=== PATIENT | male | born 1970 | race Caucasian/White ===

== ENCOUNTER 2023-03-12 22:51 | Emergency (ER) | payer SELFPAY ==
[2023-03-12] VITALS (58 sets, daily range): BP systolic 107–143; BP diastolic 61–83; PULSE 71–77; RESP 12–24; TEMP 36.8; O2SAT 91–99
--- NOTE | 2023-03-12 22:45 | RT.EKG_ITS ---
APPROVED REPORT Exam: Resting ECG Reason for Exam: chest pain Patient Location: E HR:75 bpm ECG Measurements Heart Rate 75 AXIS MD 127 P 22 QRSd 86 QRS -14 QT 355 T -7 QTc 397 Conclusion Sinus rhythm...normal P axis, V-rate 60- 99 Inferior infarct, age indeterminate...Q>35mS, T neg, II III aVF Narrow complex normal sinus rhythm at a rate of 75. Left axis deviation no signs of LVH based on vol tage criteria. Intervals within normal limits. T wave inversion in lead III. No acute ST segment a bnormalities. Prominent T wave in V3 compared to voltage of QRS complex. No acute injury pattern.
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
--- NOTE | 2023-03-12 23:15 | DI.CT_ITS ---
Exam(s) CT CHEST/ABD/PEL W CT THORACIC LUMBAR SPINE REC EXAM: CT CHEST/ABD/PEL W and CT thoracic and lumbar spine recons CLINICAL HISTORY: Trauma back pain chest pain TECHNIQUE: Imaging Protocol: Axial computed tomography images with coronal and sagittal reformatted images were created and reviewed CONTRAST MATERIAL: Intravenous: Omnipaque 350 contrast volume:100 mL Oral: No COMPARISON: There are no priors for comparison. FINDINGS: CHEST: Tracheobronchial tree: Patent where visualized. Pulmonary parenchyma: Moderate emphysematous changes are seen in the lungs. Dependent atelectasis is present, right greater than left. No focal consolidating infiltrates. There are few pulmonary nodu les present. The largest is in the right lung base and measures 6 mm. Visualized thyroid gland: Unremarkable. Mediastinum and Juliet: There are mildly enlarged lymph nodes seen in the mediastinum and hilum. The l argest measures 1.3 x 1.7 cm. The esophagus is unremarkable. Pleura: No effusion or pneumothorax. Heart: The heart is not dilated. Moderate coronary artery calcification is present. No pericardial e ffusion. Pulmonary arteries: The pulmonary arteries are insufficiently opacified for evaluation of pulmonary e mboli. Aorta: Thoracic aorta non-dilated. Mild atherosclerosis. Lymph nodes: No significant supraclavicular or axillary adenopathy. Soft tissues: Mild bilateral gynecomastia. Bones:Within normal limits for the patient's age. There are few sclerotic foci seen in the ribs. Of note is the left 9th rib. CT thoracic spine recons: Mild degenerative changes are seen in the thoracic spine. No acute fractur es or subluxations are present. There is a mild left convex curvature of the upper thoracic spine. ABDOMEN: Liver: There is fatty infiltration of the liver. No measurable mass. Portal, Superior Mesenteric, and Splenic Veins: Unremarkable. Gallbladder and Biliary Tract: There is a question of tiny echogenic debris within the gallbladder wh ich may represent small stones. No biliary ductal dilatation. Pancreas: Normal density, no abnormal calcifications or inflammatory process. Spleen: Normal. Adrenals: No masses seen. Kidneys: Normal size, contour and axis. No radiodense stones or obstructive uropathy. No masses seen. Abdominal Aorta: Abdominal portion non-dilated. Mild atherosclerosis. Bowel: No obstruction or bowel wall thickening. Appendix is unremarkable. Peritoneal Cavity: No ascites, collection or mesenteric inflammatory response. No free air. Lymph Nodes: Mildly enlarged lymph nodes seen in the right lower quadrant up to 1.7 cm. Bones: Within normal limits for the patient's age. Soft Tissues: There is a small fat containing right inguinal hernia. Lumbar spine recons: No acute fracture or subluxation is seen. There is L5 spondylolysis without spo ndylolisthesis. Age-appropriate degenerative changes are seen in the lumbar spine. PELVIS: Bladder: Symmetric distention, no gross wall thickening. Reproductive Organs: Unremarkable as visualized. Lymph Nodes: Within normal limits. Bones: Within normal limits. IMPRESSION: 1. No acute chest, abdomen or pelvic organ injury. 2. No acute fracture or subluxation in the thoracic or lumbar spine. 3. A few scattered pulmonary nodules. The largest measures 6 mm. In low risk patients, follow-up ex amination in 12 months is recommended. In high risk patients, (those with history of smoking or othe r risk factors), initial follow-up examination in 6-12 months and again in 18-24 months is recommende d. (Herminia et al, 2017). 4. Few sclerotic foci seen in the ribs. Of note is the left 9th rib lesion. These may represent bon [place]. If there is a history of cancer, bone scan should be considered for further evaluation. Unexpected findings RADIATION DOSE DELIVERED: Total DLP DATA REPOSITORY: All CT scans at this facility are submitted to the National Radiology Data Registry (NRDR) Dose Index Registry (DIR) with the [employer] ([employer]). RADIATION OPTIMIZATION: All CT scans at this facility use at least one of these dose optimization te chniques: automated exposure control; mA and/or kV adjustment per patient size (includes targeted exa ms where dose is matched to clinical indication); or iterative reconstruction.
--- NOTE | 2023-03-12 23:19 | DI.CT_ITS ---
Exam(s) CT HEAD CERVICAL SPINE WO EXAM: CT HEAD CERVICAL SPINE WO CLINICAL HISTORY: History of fall Head strike. TECHNIQUE: Imaging Protocol: Axial computed tomography images with coronal and sagittal reformatted images were created and reviewed COMPARISON: No exams were available for comparison FINDINGS: CT Head: Ventricles and Extra axial spaces: Normal in size and morphology for the patient's age. Hemorrhage: None. Cerebral parenchyma: No evidence of an acute territorial infarct. Midline shift: None. Brainstem/Cerebellum: Normal. Note is made of an empty sella. Calvarium: Normal. Visualized Paranasal sinuses/Mastoids: There is opacification of a few ethmoid air cells bilaterally. The remaining visualized paranasal sinuses are clear. There is opacity of the mastoid air cells kylah aterally. Soft Tissues: Unremarkable. CT Cervical Spine: Bones: No acute fracture or subluxation. Degenerative changes are seen in the cervical spine. Soft Tissues: Unremarkable. Lung Apices: Clear. IMPRESSION: 1. No acute intracranial process. 2. No acute fracture or subluxation in the cervical spine. RADIATION DOSE DELIVERED: Total DLP DATA REPOSITORY: All CT scans at this facility are submitted to the National Radiology Data Registry (NRDR) Dose Index Registry (DIR) with the [employer] (ACR). RADIATION OPTIMIZATION: All CT scans at this facility use at least one of these dose optimization te chniques: automated exposure control; mA and/or kV adjustment per patient size (includes targeted exa ms where dose is matched to clinical indication); or iterative reconstruction.
[2023-03-12 23:29] LABS: Abs Immature Grans 0.02 10^3/uL (0.0-0.06); Absolute Basophil Count 0.12 10^3/uL (0.0-0.2); Absolute Eosinophil Count 0.35 10^3/uL (0.0-0.7); Absolute Lymphocyte Count 3.24 10^3/uL (1.2-3.4); Absolute Monocyte Count 0.58 10^3/uL (0.1-0.8); Absolute Neutrophil Count 3.63 10^3/uL (1.2-6.7); Basophils % 1.5; Eosinophils % 4.4; HCT 46.4 % (40.0-50.0); HGB 15.8 g/dL (13.5-17.5); Immature Grans % 0.3; Lymphocytes % 40.8; MCH 30.6 pg (27.0-33.0); MCHC 34.1 % (32.0-36.0); MCV 90 fL (80-95); MPV 10.2 fL (8.0-11.0); Monocytes % 7.3; Neutrophils % 45.7; Platelet Count 235 10^3/uL (130-400); RBC 5.17 10^6/uL (4.36-5.78); RDW 12.3 % (11.8-14.1); WBC 7.94 10^3/uL (4.4-10.8)
[2023-03-12 23:47] LABS: Anion Gap 7.9 mmol/L (3-11); BUN 22 mg/dL (7-18); CO2 29.1 mmol/L (21.0-32.0); CREATININE 0.9 mg/dL (0.70-1.30); Calcium 9.1 mg/dL (8.5-10.1); Chloride 103 mmol/L (98-107); Estimated GFR 104.05 (mL/min/1.73m2); Glucose 180 mg/dL (74-106); Lipase 40 U/L (16-77); Potassium 3.8 mmol/L (3.5-5.1); Sodium 140 mmol/L (136-145); Troponin I < 50 ng/L (<or=60)
[2023-03-13] VITALS (106 sets, daily range): BP systolic 82–138; BP diastolic 48–88; PULSE 55–72; RESP 14–24; O2SAT 91–100
[2023-03-13] MEDS: Normal Saline - Diluent 50 ML VIAL IJ (00:18)
[2023-03-13] MEDS: Omnipaque 350 MG/ML 100 ML BTL IJ (00:18)
[2023-03-13] MEDS: Acetaminophen 500 MG TAB 1000 MG PO (00:25)
[2023-03-13] MEDS: fentaNYL 100 MCG/2 ML VIAL 50 MCG IVP (00:25)
[2023-03-13] MEDS: Normal Saline 500 ML IV (00:25)
--- NOTE | 2023-03-13 00:41 | DI.VRAD_ITS ---
PROCEDURE INFORMATION: Exam: CT Chest With Contrast; Diagnostic Exam date and time: 03/13/2023 12:17 AM Age: 52 years old Clinical indication: Injury or trauma; Fall; Generalized; Blunt trauma (contusions or hematomas); Injury details: Trauma back pain chest pain TECHNIQUE: Imaging protocol: Diagnostic computed tomography of the chest with contrast. Radiation optimization: All CT scans at this facility use at least one of these dose optimization techniques: automated exposure control; mA and/or kV adjustment per patient size (includes targeted exams where dose is matched to clinical indication); or iterative reconstruction. Contrast material: OMNI 350; Contrast volume: 100 ml; Contrast route: INTRAVENOUS (IV); COMPARISON: CT HEAD CERVICAL SPINE WO 03/13/2023 12:11 AM FINDINGS: Lungs: Pulmonary emphysema. No acute pulmonary infiltrate. Pleural spaces: Unremarkable. No pneumothorax. No pleural effusion. Heart: Unremarkable. No cardiomegaly. No pericardial effusion. Lymph nodes: Unremarkable. No enlarged lymph nodes. Vasculature: Unremarkable. No aortic aneurysm. Bones/joints: Unremarkable. No acute fracture. Soft tissues: Unremarkable. IMPRESSION: No acute finding. PROCEDURE INFORMATION: Exam: CT Abdomen And Pelvis With Contrast Exam date and time: 03/13/2023 12:17 AM Age: 52 years old Clinical indication: Injury or trauma; Fall; Generalized; Blunt trauma (contusions or hematomas); Injury details: Trauma back pain chest pain TECHNIQUE: Imaging protocol: Computed tomography of the abdomen and pelvis with contrast. Radiation optimization: All CT scans at this facility use at least one of these dose optimization techniques: automated exposure control; mA and/or kV adjustment per patient size (includes targeted exams where dose is matched to clinical indication); or iterative reconstruction. Contrast material: OMNI 350; Contrast volume: 100 ml; Contrast route: INTRAVENOUS (IV); COMPARISON: No relevant prior studies available. FINDINGS: Liver: Hepatic steatosis. Gallbladder and bile ducts: Normal. No calcified stones. No ductal dilation. Pancreas: Normal. No ductal dilation. Spleen: Normal. No splenomegaly. Adrenal glands: Normal. No mass. Kidneys and ureters: Normal. No hydronephrosis. Stomach and bowel: Unremarkable. No obstruction. No mucosal thickening. Appendix: No evidence of appendicitis. Intraperitoneal space: Unremarkable. No free air. No significant fluid collection. Vasculature: Unremarkable. No abdominal aortic aneurysm. Lymph nodes: Unremarkable. No enlarged lymph nodes. Urinary bladder: Unremarkable as visualized. Reproductive: Unremarkable as visualized. Bones/joints: Unremarkable. No acute fracture. Soft tissues: Unremarkable. IMPRESSION: No acute finding. Dictated and Authenticated by: Noé Grubbs MD. Ordering:STAN Tineo MD
--- NOTE | 2023-03-13 00:47 | DI.VRAD_ITS ---
PROCEDURE INFORMATION: Exam: CT Head Without Contrast Exam date and time: 03/13/2023 12:11 AM Age: 52 years old Clinical indication: Injury or trauma; Fall; Concussion/head injury; Consciousness not specified; Additional info: Fall, head injury TECHNIQUE: Imaging protocol: Computed tomography of the head without contrast. Radiation optimization: All CT scans at this facility use at least one of these dose optimization techniques: automated exposure control; mA and/or kV adjustment per patient size (includes targeted exams where dose is matched to clinical indication); or iterative reconstruction. COMPARISON: No relevant prior studies available. FINDINGS: Brain: Empty sella is noted. No acute intracranial hemorrhage or infarct is identified. No mass effect. There is no midline shift. Cerebral ventricles: No ventriculomegaly. Paranasal sinuses: Mucoperiosteal thickening is seen involving the frontal sinuses. Mastoid air cells: There is soft tissue opacification of some of the mastoid air cells bilaterally, consistent with mastoiditis. Dental: The patient is missing multiple teeth. Bones/joints: Unremarkable. No acute fracture. Soft tissues: Unremarkable. IMPRESSION: 1. Chronic sinusitis. 2. No acute intracranial hemorrhage or infarct. 3. Bilateral mastoiditis. PROCEDURE INFORMATION: Exam: CT Cervical Spine Without Contrast Exam date and time: 03/13/2023 12:11 AM Age: 52 years old Clinical indication: Injury or trauma; Fall; Concussion/head injury; Consciousness not specified; Additional info: Fall, head injury TECHNIQUE: Imaging protocol: Computed tomography of the cervical spine without contrast. Radiation optimization: All CT scans at this facility use at least one of these dose optimization techniques: automated exposure control; mA and/or kV adjustment per patient size (includes targeted exams where dose is matched to clinical indication); or iterative reconstruction. COMPARISON: No relevant prior studies available. FINDINGS: Bones/joints: There is narrowing of the intervertebral disc space at C5-C6 with spondylosis. There is dextrocurvature of the cervical spine. Round low-density structure is seen in the 6th cervical vertebra measuring approximally 5 mm in size, suggesting cyst. There are no acute wedge compression fracture deformities. There is normal vertebral body alignment. Lungs: Lung apices are normal. Vasculature: Carotid artery calcifications are noted. Soft tissues: Unremarkable. IMPRESSION: 1. Mild dextrocurvature. 2. Degenerative disc disease at C5-C6. 3. Small cyst at C6.. Dictated and Authenticated by: Oliver Madison MD. Ordering:STAN Tineo MD
--- NOTE | 2023-03-13 00:48 | DI.VRAD_ITS ---
PROCEDURE INFORMATION: Exam: CT Thoracic Spine Without Contrast Exam date and time: 03/13/2023 12:17 AM Age: 52 years old Clinical indication: Injury or trauma; Fall; Blunt trauma (contusions or hematomas); Injury details: Trauma back pain TECHNIQUE: Imaging protocol: Computed tomography of the thoracic spine without contrast. Radiation optimization: All CT scans at this facility use at least one of these dose optimization techniques: automated exposure control; mA and/or kV adjustment per patient size (includes targeted exams where dose is matched to clinical indication); or iterative reconstruction. COMPARISON: CT HEAD CERVICAL SPINE WO 03/13/2023 12:11 AM FINDINGS: Bones/joints: No acute fracture. Normal alignment. Minimal disc osteophytes. IMPRESSION: No acute finding. PROCEDURE INFORMATION: Exam: CT Lumbar Spine Without Contrast Exam date and time: 03/13/2023 12:17 AM Age: 52 years old Clinical indication: Injury or trauma; Fall; Blunt trauma (contusions or hematomas); Injury details: Trauma back pain TECHNIQUE: Imaging protocol: Computed tomography of the lumbar spine without contrast. Radiation optimization: All CT scans at this facility use at least one of these dose optimization techniques: automated exposure control; mA and/or kV adjustment per patient size (includes targeted exams where dose is matched to clinical indication); or iterative reconstruction. COMPARISON: No relevant prior studies available. FINDINGS: Bones/joints: No acute fracture. Normal alignment. Multilevel discogenic change with at least mild canal stenosis. Soft tissues: Unremarkable. IMPRESSION: No acute finding. Dictated and Authenticated by: Noé Grubbs MD. Ordering:STAN Tineo MD
[2023-03-13] MEDS: Lidocaine 5% Patch 1 PATCH TP (01:27)
[2023-03-13 02:35] LABS: Troponin I < 50 ng/L (<or=60)
== END 2023-03-13 02:53 | disposition home or self-care (01) ==
LOC: ER 03-13 03:16
PROVIDERS: Emergency Provider Emergency Medicine
DX: R07.9 Chest pain, unspecified; M54.9 Dorsalgia, unspecified; I25.10 Atherosclerotic heart disease of native coronary artery without angina pectoris; Z95.5 Presence of coronary angioplasty implant and graft; S09.90XA Unspecified injury of head, initial encounter; I25.2 Old myocardial infarction; W01.0XXA Fall on same level from slipping, tripping and stumbling without subsequent striking against object, initial encounter
CPT/HCPCS: 36415; 74177; 80048; 83690; 93005; 93308; 96361; 96374; 99285; 70450; 71260; 72125; 84484; 85025; 93010; J3010; J3490